=== PATIENT | male | born 1965 | race Caucasian/White ===

== ENCOUNTER 2017-08-22 05:33 | Outpatient (CLI) | payer BC ==
[~2017-08-22] VITALS: Ht 177.8 cm; Wt 131.5 kg
[~2017-08-22 05:33] MED LIST: ACHD5005 PO; CPR500T PO; CYCL10TA9 PO; HYDR1TAB8 OP; ONDAN4ODT PO; PRD50T PO; TMSL.4C PO
[2017-08-22] MEDS ORDERED: NALT1TAB PO (09:44)
== END 2017-08-22 09:49 ==
LOC: PREOP 05:33
PROVIDERS: ATTEND Surgery
DX: Z01.818 Encounter for other preprocedural examination (principal); Z12.11 Encounter for screening for malignant neoplasm of colon

== ENCOUNTER → 2017-08-29 | Day surgery (SDC) | payer BC, OTHER ==
[~2017-08-29] VITALS: Ht 177.8 cm; Wt 131.5 kg
[~2017-08-29] MED LIST changes: +LACTATED RINGERS 1,000 ML IV ONE; +LACTATED RINGERS 1,000 ML IV STA; +MIDAZOLAM 2 MG/2 ML (VERSED) VIAL ONE; +NALT1TAB PO; +PROPOFOL INJECTION 50 ML IV ONE; +proPOfol 200 MG/20 ML (DIPRIVAN) VIAL IV ONE
[2017-08-29 07:34] VITALS: BP 135/86
--- NOTE | 2017-08-29 08:04 | Progress Note-Pre Operative ---
Pre-Operative Progress Note H&P Reviewed The H&P was reviewed, patient examined and no changes noted. Date Seen by Provider: Aug 29, 2017 Time Seen by Provider: 08:04 Date H&P Reviewed: Aug 29, 2017 Time H&P Reviewed: 08:04 Pre-Operative Diagnosis: screening colonoscopy WINTER CHAVEZ DO Aug 29, 2017 08:04
--- NOTE | 2017-08-29 08:46 | Progress Note-Post Operative ---
Post-Operative Progess Note Surgeon (s)/Medical Management Specialist (s) Surgeon WINTER CHAVEZ DO Medical Management Specialist: na Pre-Operative Diagnosis screening colonoscopy Post-Operative Diagnosis cecal polyp, rectal polyp Procedure & Operative Findings Date of Procedure 08/29/17 Procedure Performed/Findings colonoscopy with hot bx polypectomy cecum, snare polypectomy and inking of rectal polyp Anesthesia Type per associate professor of violin Estimated Blood Loss Estimated blood loss (mL): na Specimens/Packing Specimens Removed cecal and rectal polyp WINTER CHAVEZ DO Aug 29, 2017 08:45
--- NOTE | 2017-08-29 08:48 | Discharge Inst-Simple/Standard ---
Discharge Inst-Standard Patient Instructions/Follow Up Plan of Care/Instructions/FU: 2 weeks Rj Activity as Tolerated: Yes Discharge Diet: Regular Diet WINTER CHAVEZ DO Aug 29, 2017 08:48
[2017-08-29 08:55] VITALS: BP 121/81
[2017-08-29 09:25] VITALS: BP 124/84
--- NOTE | 2017-08-29 09:27 | Anesthesia-General Post-Op ---
MAC Patient Condition Mental Status/LOC: Same as Preop Cardiovascular: Satisfactory Nausea/Vomiting: Absent Respiratory: Satisfactory Pain: Controlled Complications: Absent Post Op Complications Complications None Follow Up Care/Instructions Patient Instructions None needed. Anesthesiology Discharge Order Discharge Order Patient is doing well, no complaints, stable vital signs, no apparent adverse anesthesia problems. No complications reported per nursing. JESSICA CASE CRNA Aug 29, 2017 09:27
[2017-08-29 09:34] VITALS: BP 124/84
--- NOTE | 2017-08-29 09:49 | OPERATIVE REPORT ---
DATE OF SERVICE: 08/29/2017 PREOPERATIVE DIAGNOSIS: Screening colonoscopy. POSTOPERATIVE DIAGNOSES: Cecal and rectal polyp. PROCEDURE: Colonoscopy with hot biopsy polypectomy of cecal polyp, snare polypectomy and inking of rectal polyp. SURGEON: Winter De La Rosa DO ANESTHESIA: Per JOURNEYMAN LEVEL ACOUSTIC ANALYST. ESTIMATED BLOOD LOSS: None. COMPLICATIONS: None. INDICATIONS: The patient is a 52-year-old male due for a screening colonoscopy. He understands risks and benefits of procedure and wished to proceed with procedure. Consent was signed on chart. DESCRIPTION OF PROCEDURE: The patient was taken to the endoscopy suite, placed in left lateral recumbent position. Timeout was performed. Digital rectal exam was performed. There were no palpable polyps, mass or ulcerations. Scope was inserted into the rectum and advanced all the way to the cecum with minimal difficulty. Prep was adequate with little bit of irrigation and suction as well. Small polyp in the cecum, which hot biopsy polypectomy was performed. Scope was then slowly retracted back. There were no polyps, mass or ulcerations within the ascending, transverse and descending colon. There were no polyps, mass or ulceration of the sigmoid colon with normal mucosal appearance. Within the proximal rectum, a larger greater than 1 cm polyp was present. The polyp is inked just even with that and slightly distal with a total of 2 mL of Nellie ink. A snare polypectomy was then performed. Specimen was removed through the anus. The scope was reinserted. The area was inspected. Hemostasis was present and polyp was removed in its entirety. The scope was then slowly retracted back and retroflexed noting no other pathology. Scope was returned to its normal position, slowly until completely removed. RECOMMENDATIONS: The patient will follow up in 2 weeks to discuss pathology. We will recommend repeat colonoscopy in 3 to 6 months to reevaluate. Job ID: [id number] DocumentID: [id number] Dictated Date: 08/29/2017 08:52:18 Councilperson Date: 08/29/2017 09:48:22 Dictated By: WINTER DE LA ROSA DO
== END | disposition home or self-care (01) ==
LOC: ENDO 07:06
PROVIDERS: ATTEND Surgery
DX: Z12.11 Encounter for screening for malignant neoplasm of colon (principal); K63.5 Polyp of colon; D12.8 Benign neoplasm of rectum; F17.210 Nicotine dependence, cigarettes, uncomplicated; Z80.0 Family history of malignant neoplasm of digestive organs

== ENCOUNTER 2017-12-05 06:52 | Day surgery (SDC) | payer BC ==
[~2017-12-05] VITALS: Ht 177.8 cm; Wt 131.5 kg
[~2017-12-05 06:52] MED LIST changes: -LACTATED RINGERS 1,000 ML IV ONE; -LACTATED RINGERS 1,000 ML IV STA; -MIDAZOLAM 2 MG/2 ML (VERSED) VIAL ONE; -PROPOFOL INJECTION 50 ML IV ONE; -proPOfol 200 MG/20 ML (DIPRIVAN) VIAL IV ONE
[2017-12-05] MEDS ORDERED: LACTATED RINGERS 1,000 ML IV ONE (07:13)
[2017-12-05] MEDS ORDERED: LACTATED RINGERS 1,000 ML IV STA (07:32)
[2017-12-05] MEDS ORDERED: PROPOFOL INJECTION 50 ML IV ONE (07:42)
[2017-12-05 07:43] VITALS: BP 126/82
[2017-12-05] MEDS ORDERED: MIDAZOLAM 2 MG/2 ML (VERSED) VIAL ONE (07:43)
--- NOTE | 2017-12-05 08:19 | Progress Note-Pre Operative ---
Pre-Operative Progress Note H&P Reviewed The H&P was reviewed, patient examined and no changes noted. Date Seen by Provider: Dec 05, 2017 Time Seen by Provider: 08:10 Date H&P Reviewed: Dec 05, 2017 Time H&P Reviewed: 08:10 Pre-Operative Diagnosis: history of polyps WINTER CHAVEZ DO Dec 05, 2017 08:19
--- NOTE | 2017-12-05 09:04 | Progress Note-Post Operative ---
Post-Operative Progess Note Surgeon (s)/Senior Statistical Programmer (s) Surgeon WINTER CHAVEZ DO Senior Statistical Programmer: na Pre-Operative Diagnosis history of polyps Post-Operative Diagnosis colon polyps Procedure & Operative Findings Date of Procedure 12/05/17 Procedure Performed/Findings colonoscopy with hot bx polypectomy x 2 Anesthesia Type per lead carpenter Estimated Blood Loss Estimated blood loss (mL): none Specimens/Packing Specimens Removed ascending/descending colon polyp WINTER CHAVEZ DO Dec 05, 2017 09:04
--- NOTE | 2017-12-05 09:07 | Discharge Inst-Simple/Standard ---
Discharge Inst-Standard Patient Instructions/Follow Up Plan of Care/Instructions/FU: 2 weeks Rj Activity as Tolerated: Yes Discharge Diet: Regular Diet WINTER CHAVEZ DO Dec 05, 2017 09:07
[2017-12-05 09:10] VITALS: BP 131/65
[2017-12-05 09:30] VITALS: BP 133/76
[2017-12-05 11:29] VITALS: BP 133/76
--- NOTE | 2017-12-06 13:19 | OPERATIVE REPORT ---
DATE OF SERVICE: 12/05/2017 PREOPERATIVE DIAGNOSIS: History of polyps. POSTOPERATIVE DIAGNOSIS: Colon polyps. PROCEDURE: Colonoscopy with hot biopsy polypectomy x2. SURGEON: Winter De La Rosa DO ANESTHESIA: Per SUPERVISOR TUMBLERS. ESTIMATED BLOOD LOSS: None. COMPLICATIONS: None. INDICATIONS: The patient is a 52-year-old male with a history of a large polyp in the rectum. He understands risks and benefits of the procedure and wished to proceed with the procedure. Consent was signed on the chart. DESCRIPTION OF PROCEDURE: The patient was taken to the endoscopy suite, placed in left lateral recumbent position. Timeout was performed. Digital rectal exam was performed. There were no palpable polyps, masses, or ulcerations. The scope was inserted into the rectum and advanced all the way to the cecum with minimal difficulty. Prep was adequate. There were no polyps, mass or ulcerations within the cecum. Within the ascending colon, a very small polyp was present for which hot biopsy polypectomy was performed. Scope was continued to be slowly retracted back through the remainder of the descending and transverse colon. No other polyps, masses, or ulcerations were present. In the descending colon, another 2 mm polyp was present and hot biopsy polypectomy was performed. The scope was continuously retracted back. No polyps, mass or ulcerations within the sigmoid and rectum. Once in the rectum, the scope was also retroflexed noting no other pathology. The scope was returned to its normal position, slowly withdrawn until completely removed. The patient tolerated the procedure well without any complications. He was taken to the recovery room in stable condition. RECOMMENDATIONS: The patient will need repeat colonoscopy in 3 years. If he has any problems prior to that, he should be reevaluated at that time. Job ID: [id number] DocumentID: [id number] Dictated Date: 12/05/2017 09:09:25 Continuous Yarn Dyeing Machine Operator Date: 12/05/2017 14:05:38 Dictated By: WINTER DE LA ROSA DO
== END 2017-12-05 09:40 | disposition home or self-care (01) ==
LOC: ENDO 06:52
PROVIDERS: ATTEND Surgery
DX: Z09 Encounter for follow-up examination after completed treatment for conditions other than malignant neoplasm (principal); D12.2 Benign neoplasm of ascending colon; K63.5 Polyp of colon; F17.200 Nicotine dependence, unspecified, uncomplicated; E66.01 Morbid (severe) obesity due to excess calories; Z68.41 Body mass index [BMI] 40.0-44.9, adult; Z86.010 Personal history of colon polyps
CPT/HCPCS: 88305

== ENCOUNTER 2019-07-31 14:35 | Emergency (ER) | payer OTHER, BC ==
[~2019-07-31] VITALS: Ht 177.9 cm; Wt 145.0 kg
[2019-07-31] MEDS ORDERED: ORPHENADRINE 60 MG/2 ML (NORFLEX) AMP IM ONE (15:15)
[2019-07-31] MEDS ORDERED: KETOROLAC 60 MG/2 ML VIAL IM ONE (15:15)
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
[2019-07-31] MEDS ORDERED: ACHD5005 PO (16:39)
[2019-07-31] MEDS ORDERED: CYCL5TAB PO (16:39)
[2019-07-31] MEDS ORDERED: PRD50T PO (16:39)
[2019-07-31 16:50] VITALS: BP 131/88
== END 2019-07-31 16:50 | disposition home or self-care (01) ==
LOC: EDUNIT# 14:35 → ER 14:36
DX: S33.131A Dislocation of L3/L4 lumbar vertebra, initial encounter (principal); Z88.1 Allergy status to other antibiotic agents; Y93.89 Activity, other specified
CPT/HCPCS: 72131; 96372

== ENCOUNTER 2020-03-15 14:30 | Emergency (ER) | payer BC ==
[~2020-03-15] VITALS: Ht 177 cm; Wt 136.0 kg
[~2020-03-15 14:30] MED LIST changes: +CYCL5TAB PO
--- NOTE | 2020-03-15 14:57 | ED Back Pain ---
General Chief Complaint: Back Problems Stated Complaint: BACK PAIN Nursing Triage Note: PT TO ED W/ C/O BACK PAIN ONSET WHILE BENDING OVER ET LIFTING BOXES. DENIES INJURY. NO OTHER C/O VOICED. Nursing Sepsis Screen: No Definite Risk Source of Information: Patient Exam Limitations: No Limitations History of Present Illness Date Seen by Provider: Mar 15, 2020 Time Seen by Provider: 14:39 Initial Comments Patient presents ER by private conveyance from home with chief complaint that this morning around 8:30 he was bending over putting some parts into his trailer when he felt a spasming pain walking up in his low back. He does have a chronic history of low back pain. Pain does not radiate anywhere. He is not having any weakness numbness falls saddle anesthesia loss of control of bowel or bladder fever or chills or other trauma. He has had CTs in the past but no surgery. He says in the past he came to the ER and got some medications that seemed to help with the spasms. He follows with Dr. Mac. Allergies and Home Medications Allergies Coded Allergies: cefaclor (Verified Adverse Reaction, Intermediate, NAUSEA, 08/22/17) Home Medications Cyclobenzaprine HCl 5 Mg Tablet, 5 MG PO TID Prescribed by: PORFIRIO BOYER on 07/31/19 163 Hydrocodone Bit/Acetaminophen 1 Tab Tab, 1 EACH PO Q4-6HR PRN for PAIN-MODERATE Prescribed by: PORFIRIO BOYER on 07/31/19 163 Naltrexone HCl/Bupropion HCl 1 Each Tablet.er, 1 EACH PO DAILY, (Reported) Prednisone 50 Mg Tab, 50 MG PO DAILY Prescribed by: PORFIRIO BOYER on 07/31/19 1639 Patient Home Medication List Home Medication List Reviewed: Yes Review of Systems Constitutional: No chills, No diaphoresis EENTM: No ear discharge, No ear pain Respiratory: No cough, No short of breath Cardiovascular: No chest pain, No palpitations Gastrointestinal: No abdominal pain, No nausea, No vomiting Genitourinary: No discharge, No dysuria Musculoskeletal: back pain; No joint pain Skin: No pruritus, No rash Psychiatric/Neurological: Denies Headache, Denies Numbness All Other Systems Reviewed Negative Unless Noted: Yes Past Fkpaapv-Cxqkfh-Ddqfgw Hx Patient Social History Alcohol Use: Denies Use Recreational Drug Use: No Smoking Status: Never a Smoker 2nd Hand Smoke Exposure: No Recent Foreign Travel: No Contact w/Someone Who Travel: No Recent Infectious Disease Expo: No Recent Hopitalizations: No Physical Abuse: No Sexual Abuse: No Mistreated: No Fear: No Immunizations Up To Date Tetanus Booster (TDap): More than 5yrs Seasonal Allergies Seasonal Allergies: No Past Medical History Surgeries: Yes (KNEE SCOPE, SHOULDER, L CTR) Orthopedic Respiratory: No Cardiac: No Neurological: No Reproductive Disorders: No Sexually Transmitted Disease: No HIV/AIDS: No Kidney Stones Gastrointestinal: No Musculoskeletal: No Endocrine: No Loss of Vision: Bilateral Hearing Impairment: Denies Cancer: No Psychosocial: No Integumentary: No Blood Disorders: No Adverse Reaction/Blood Tranf: No (N/A) Family Medical History No Pertinent Family Hx Physical Exam Vital Signs Vital Signs - First Documented 03/15/20 14:34 Temp 36.2 Pulse 66 Resp 20 B/P (MAP) 131/79 (96) Pulse Ox 96 Capillary Refill : Less Than 3 Seconds Height, Weight, BMI Height: 5'10.00" Weight: 290lbs. 0.0oz. [id number]; 43.00 BMI Method:Stated General Appearance: Mild Distress, Obese HEENT: PERRL/EOMI, Pharynx Normal, Moist Mucous Membranes Neck: Normal Inspection, Non Tender Cardiovascular: Regular Rate, Rhythm, Normal Peripheral Pulses Respiratory: No Accessory Muscle Use, No Respiratory Distress Peripheral Pulses: 2+ Radial Pulses (R), 2+ Radial Pulses (L) Back: Normal Inspection, Muscle Spasm (bilateral lumbar spine); No Vertebral Tenderness Extremity: Normal Capillary Refill, Normal Inspection Neurologic/Psychiatric: Alert, Oriented x3, No Motor/Sensory Deficits Skin: Normal Color, Warm/Dry Progress/Results/Core Measures Results/Orders My Orders Orders - ANGELICA EDMOND Orphenadrine Inj (Ed Only) (Norflex Inje (03/15/20 15:00) Ketorolac Injection (Toradol Injection) (03/15/20 15:00) Vital Signs/I&O 03/15/20 14:34 Temp 36.2 Pulse 66 Resp 20 B/P (MAP) 131/79 (96) Pulse Ox 96 Blood Pressure Mean: 96 Progress Progress Note : Time: 14:56 Progress Note Review of his CT from July 2019, 8 months ago demonstrated some 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 He is not having any red flag signs today so we'll start with NSAIDs, muscle relaxants and encourage him to follow with Dr. Mac if this is not showing some improvement this week and he could consider going to physical therapy as well as steroids. Return precautions were given. Departure Impression Primary Impression: Lumbago without sciatica Qualified Codes: M54.5 - Low back pain Disposition: 01 HOME, SELF-CARE Condition: Stable Departure-Patient Inst. Decision time for Depature: 14:50 Referrals: KHOA MAC MD (PCP/Family) Primary Care Physician Patient Instructions: Low Back Pain (DC), Back Stretches on Floor Add. Discharge Instructions: Topical creams, icy hot, Biofreeze etc. Start an NSAID daily such as naproxen 2 tablets twice a day or ibuprofen 4 tablets 3 times a day for the next 2 weeks. Tylenol 1000 mg every 8 hours as necessary for pain. Heating pads can be helpful for your pain. Follow-up with physical therapy or your primary care doctor next week if you're not seeing some improvement. Cyclobenzaprine/Flexeril one tablet every 8 hours as necessary for muscle spasms. Will cause drowsiness. Return to the ER if you have inability to control your urine or bowels, falls due to weakness, numbness. All discharge instructions reviewed with patient and/or family. Voiced understanding. Scripts Cyclobenzaprine HCl (Cyclobenzaprine HCl) 10 Mg Tablet 10 MG PO Q8H PRN for SPASMS, #20 TAB 0 Refills Prov: ANGELICA EDMOND 03/15/20 ANGELICA EDMOND Mar 15, 2020 14:57
[2020-03-15] MEDS ORDERED: KETOROLAC 60 MG/2 ML VIAL IM ONE (15:00)
[2020-03-15] MEDS ORDERED: ORPHENADRINE 60 MG/2 ML (NORFLEX) AMP (ED ONLY) IM ONE (15:00)
[2020-03-15] MEDS ORDERED: CYCL10TA9 PO (15:01)
[2020-03-15 15:30] VITALS: BP 0/0
--- NOTE | 2020-03-15 15:30 | NUR ---
PT DISCHARGED TO HOME W/ INSTR. PT TO TAKE MEDS INSTR, F/U W/ PCP ET RETURN IF SYMPTOMS CHANGE OR GET WORSE. PT VOICED UNDERSTANDING, NO QUESTIONS.
== END 2020-03-15 15:30 ==
LOC: EDUNIT# 14:30 → ER 14:31
DX: M54.5 Low back pain (principal); E66.9 Obesity, unspecified; Z68.41 Body mass index [BMI] 40.0-44.9, adult; Z88.8 Allergy status to other drugs, medicaments and biological substances; Z79.52 Long term (current) use of systemic steroids
CPT/HCPCS: 99284

== ENCOUNTER 2020-11-24 05:42 | Outpatient (CLI) | payer BC, OTHER ==
[~2020-11-24] VITALS: Ht 177.8 cm; Wt 153.4 kg
== END 2020-11-25 09:46 | disposition home or self-care (01) ==
LOC: PREOP 05:42
PROVIDERS: ATTEND Surgery
DX: Z01.818 Encounter for other preprocedural examination (principal)

== ENCOUNTER 2020-12-07 16:05 | Emergency (ER) | payer OTHER ==
[~2020-12-07] VITALS: Ht 177.8 cm; Wt 145.0 kg
--- NOTE | 2020-12-07 16:57 | ED Abdominal Pain ---
General Chief Complaint: Abdominal/GI Problems Stated Complaint: ABD PAIN / FEVER Source of Information: Patient Exam Limitations: No Limitations (DEE MAYA APRN) History of Present Illness Date Seen by Provider: Dec 07, 2020 Time Seen by Provider: 16:57 (DEE MAYA APRN) Initial Comments This 55-year-old gentleman presents to the emergency room with complaints of abdominal pain, diarrhea, and a dry cough for the past several days. He is also febrile. He has had no known Covid exposures at work. He has not been vaccinated for COVID-19. He appears to have peritoneal signs on exam with tenderness to percussion throughout the abdomen. He denies any known health problems. (YISSEL VALE MD) Allergies and Home Medications Allergies Coded Allergies: cefaclor (Verified Adverse Reaction, Intermediate, NAUSEA, 08/22/17) Home Medications Azithromycin 250 Mg Tablet, 250 MG PO DAILY Prescribed by: YISSEL SEGAL on 12/07/202004 Dexamethasone 6 Mg Tablet, 6 MG PO DAILY Prescribed by: YISSEL SEGAL on 12/07/202004 Patient Home Medication List Home Medication List Reviewed: Yes (YISSEL VALE MD) Review of Systems Review of Systems Constitutional: no symptoms reported EENTM: No Symptoms Reported Respiratory: See HPI Cardiovascular: No Symptoms Reported Gastrointestinal: See HPI Genitourinary: No Symptoms Reported Musculoskeletal: muscle pain Skin: no symptoms reported Psychiatric/Neurological: No Symptoms Reported Endocrine: No Symptoms Reported Hematologic/Lymphatic: No Symptoms Reported (YISSEL VALE MD) Past Pexvvug-Eorgpq-Hidfam Hx Patient Social History Tobacco Use?: No Substance use?: No Alcohol Use?: Yes Alcohol Frequency: Once in a while Pt feels they are or have been: No (DEE MAYA APRN) Tobacco Use?: No (YISSEL VALE MD) Immunizations Up To Date Tetanus Booster (TDap): More than 5yrs (DEE MAYA APRN) Seasonal Allergies Seasonal Allergies: No (DEE MAYA APRN) Seasonal Allergies: No (YISSEL VALE MD) Past Medical History Surgeries: Yes (KNEE SCOPE, SHOULDER, L CTR) Orthopedic Respiratory: No Cardiac: No Neurological: No Reproductive Disorders: No Sexually Transmitted Disease: No HIV/AIDS: No Kidney Stones Gastrointestinal: No Musculoskeletal: No Endocrine: No Loss of Vision: Bilateral Hearing Impairment: Denies Cancer: No Psychosocial: No Integumentary: No Blood Disorders: No Adverse Reaction/Blood Tranf: No (N/A) (DEE MAYA APRN) Surgeries: No Respiratory: No Cardiac: No Neurological: No Reproductive Disorders: No Genitourinary: No Gastrointestinal: No Musculoskeletal: No Endocrine: No HEENT: No Cancer: No Psychosocial: No Integumentary: No (YISSEL VALE MD) Family Medical History No Pertinent Family Hx (DEE MAYA APRN) Physical Exam Vital Signs Vital Signs - First Documented 12/07/20 16:25 Temp 38.1 Pulse 74 Resp 20 B/P (MAP) 118/80 (93) Pulse Ox 92 O2 Delivery Room Air (YISSEL VALE MD) Vital Signs Capillary Refill : (DEE MAYA APRN) Height/Weight/BMI Height: 5'10.00" Weight: 290lbs. 0.0oz. [id number]; 48.52 BMI Method:Stated (DEE MAYA APRN) General Appearance: WD/WN, mild distress, obese HEENT: normal ENT inspection Neck: normal inspection Respiratory: lungs clear, no respiratory distress, decreased breath sounds Cardiovascular: regular rate, rhythm, no edema, no murmur Gastrointestinal: normal bowel sounds, soft, tenderness (Generalized tenderness throughout to percussion) Extremities: non-tender, normal inspection, no pedal edema Neurologic/Psychiatric: log loader II-XII nml as tested, no motor/sensory deficits, alert, normal mood/affect, oriented x 3 Skin: normal color, warm/dry (YISSEL VALE MD) Progress/Results/Core Measures Results/Orders Lab Results Laboratory Tests Test 12/07/20 16:55 Range/Units White Blood Count 3.4 L 4.3-11.0 10^3/uL Red Blood Count 5.69 H 4.30-5.52 10^6/uL Hemoglobin 17.0 13.3-17.7 g/dL Hematocrit 50 40-54 % Mean Corpuscular Volume 88 80-99 fL Mean Corpuscular Hemoglobin 30 25-34 pg Mean Corpuscular Hemoglobin Concent 34 32-36 g/dL Red Cell Distribution Width 12.6 10.0-14.5 % Platelet Count 116 L 130-400 10^3/uL Mean Platelet Volume 12.0 9.0-12.2 fL Immature Granulocyte % (Auto) 0 % Neutrophils (%) (Auto) 77 H 42-75 % Lymphocytes (%) (Auto) 15 12-44 % Monocytes (%) (Auto) 9 0-12 % Eosinophils (%) (Auto) 0 0-10 % Basophils (%) (Auto) 0 0-10 % Neutrophils # (Auto) 2.6 1.8-7.8 10^3/uL Lymphocytes # (Auto) 0.5 L 1.0-4.0 10^3/uL Monocytes # (Auto) 0.3 0.0-1.0 10^3/uL Eosinophils # (Auto) 0.0 0.0-0.3 10^3/uL Basophils # (Auto) 0.0 0.0-0.1 10^3/uL Immature Granulocyte # (Auto) 0.0 0.0-0.1 10^3/uL Percent Immature Platelet Fraction 7.6 0.0-7.6 % Sodium Level 137 135-145 MMOL/L Potassium Level 3.9 3.6-5.0 MMOL/L Chloride Level 100 98-107 MMOL/L Carbon Dioxide Level 27 21-32 MMOL/L Anion Gap 10 5-14 MMOL/L Blood Urea Nitrogen 15 7-18 MG/DL Creatinine 1.15 0.60-1.30 MG/DL Estimat Glomerular Filtration Rate > 60 BUN/Creatinine Ratio 13 Glucose Level 111 H 70-105 MG/DL Calcium Level 8.8 8.5-10.1 MG/DL Corrected Calcium 8.7 8.5-10.1 MG/DL Total Bilirubin 1.0 0.1-1.0 MG/DL Aspartate Amino Transf (AST/SGOT) 47 H 5-34 U/L Alanine Aminotransferase (ALT/SGPT) 50 0-55 U/L Alkaline Phosphatase 56 40-136 U/L C-Reactive Protein High Sensitivity 5.94 H 0.00-0.50 MG/DL B-Type Natriuretic Peptide 19.1 <100.0 PG/ML Total Protein 7.2 6.4-8.2 GM/DL Albumin 4.1 3.2-4.5 GM/DL Lipase 12 8-78 U/L Procalcitonin 0.08 <0.10 NG/ML Influenza Type A (RT-PCR) Not Detected Not Detecte Influenza Type B (RT-PCR) Not Detected Not Detecte SARS-CoV-2 RNA (RT-PCR) Detected H Not Detecte (YISSEL VALE MD) My Orders Orders - YISSEL VALE MD Lipase (12/07/20 17:19) Ct Abdomen/Pelvis W (12/07/20 18:11) Ua Culture If Indicated (12/07/20 18:13) Albuterol Inhaler (Ventolin Hfa) (12/07/20 18:17) Iohexol Injection (Omnipaque 350 Mg/Ml 1 (12/07/20 18:30) Received Contrast (Hold Metformin- Contr (12/07/20 18:30) Sodium Chloride Flush (Catheter Flush Sy (12/07/20 18:30) Ns (Ivpb) (Sodium Chloride 0.9% Ivpb Bag (12/07/20 18:30) BNP (12/07/20 19:16) Procalcitonin (Pct) (12/07/20 19:16) Azithromycin Tablet (Zithromax Tablet) (12/07/20 19:45) Dexamethasone Injection (Decadron Inje (12/07/20 19:45) (YISSEL VALE MD) Medications Given in ED Current Medications Medications Dose Ordered Sig/Gilberto Route Start Time Stop Time Status Last Admin Dose Admin Acetaminophen 1,000 mg ONCE ONCE PO 12/07/20 17:15 12/07/20 20:40 DC 12/07/20 17:15 1,000 MG Azithromycin 500 mg ONCE ONCE PO 12/07/20 19:45 12/07/20 19:46 DC 12/07/20 20:22 500 MG Dexamethasone Sodium Phosphate 6 mg ONCE ONCE IV 12/07/20 19:45 12/07/20 19:46 DC 12/07/20 20:22 6 MG Iohexol 100 ml ONCE ONCE IV 12/07/20 18:30 12/07/20 18:31 DC 12/07/20 18:40 100 ML Sodium Chloride 10 ml NEEDED PRN IV 12/07/20 18:30 12/07/20 20:40 DC 12/07/20 18:40 10 ML Sodium Chloride 100 ml ONCE ONCE IV 12/07/20 18:30 12/07/20 18:31 DC 12/07/20 18:40 80 ML (YISSEL VALE MD) Vital Signs/I&O 12/07/20 12/07/20 12/07/20 12/07/20 16:25 17:13 17:15 20:30 Temp 38.1 38.1 38.1 36.9 Pulse 74 77 Resp 20 19 B/P (MAP) 118/80 (93) 111/77 (93) Pulse Ox 92 94 O2 Delivery Room Air Room Air (YISSEL VALE MD) Progress Progress Note : Progress Note COVID-19 swab was positive. Patient was maintaining oxygen saturations of 91 to 93% when lying down. Oxygen saturation improved to 93 to 97% when sitting up or active. His chest seem fairly tight on auscultation. Albuterol inhaler was gi greg which did improve his shortness of breath some. I discussed the situation with Dr. Mac. His status is borderline for admission versus discharge home. He would like to try being discharged home and monitor his oxygen saturations closely. Since his oxygen saturations are borderline, he is being started on dexamethasone and azithromycin. An order for monoclonal antibodies was submitted to the pharmacy. Patient also had significant abdominal tenderness, even to percussion. For this reason CT of the abdomen and pelvis was obtained. It showed some thickening of the viscera suggestive of gastroenteritis. (YISSEL VALE MD) Diagnostic Imaging Diagonstic Imaging: Xray Plain Films/CT/US/NM/MRI: chest Comments Chest x-ray viewed by me and report reviewed. See report below. NAME: CRISTIAN RODGERS MED REC#: [id number] PT STATUS: REG ER : 1965 PHYSICIAN: DEE MAYA APRN ADMIT DATE: 12/07/20/ER Signed Date of Exam:12/07/20 CHEST 1 VIEW, AP/PA ONLY EXAMINATION: Chest 1 view HISTORY: Cough. COMPARISON: 03/01/2016. FINDINGS: Lung volumes are low. Patchy opacities are seen throughout the lungs. No large pleural effusion or pneumothorax. The cardiac silhouette is unremarkable. No acute osseous abnormalities. IMPRESSION: 1. Low lung volumes and patchy opacities throughout the lungs. Findings may represent multifocal pneumonia versus edema. A component of atelectasis may also be present. Dictated by: Dictated on workstation # [id number] Dict: 12/07/208 Trans: 12/07/201810 [facility] [id number] Interpreted by: MERLYN ALAS DO Electronically signed by: MERLYN ALAS DO 12/07/201810 Diagonstic Imaging: CT Plain Films/CT/US/NM/MRI: abdomen, pelvis Comments CT abdomen pelvis viewed by me and report reviewed. See report below: NAME: CRISTIAN RODGERS [facility] REC#: [id number] PT STATUS: REG ER : 1965 PHYSICIAN: YISSEL VALE MD ADMIT DATE: 12/07/20/ER Draft Date of Exam:12/07/20 CT ABDOMEN/PELVIS W PROCEDURE: CT abdomen and pelvis with contrast, 12/07/2020. TECHNIQUE: Multiple contiguous axial images were obtained through the abdomen and pelvis after administration of intravenous contrast. Auto Exposure Controls were utilized during the CT exam to meet ALARA standards for radiation dose reduction. All CT scans use one or more of the following dose optimizing techniques: automated exposure control, MA and/or KvP adjustment based on patient size and exam type or iterative reconstruction. INDICATION: Positive for Covid. Abdominal pain. Peritoneal signs. FINDINGS: There are multiple patchy airspace opacities diffusely throughout both lungs consistent with the known history of Covid. Within the abdomen and pelvis there are multiple cystic lesions, some of which are too small for characterization. Others consistent with cysts. The spleen, pancreas and adrenal glands unremarkable. The gallbladder unremarkable. Kidneys within normal limits. There is a small left pleural effusion. There is wall thickening throughout the stomach which could be due to under distention versus gastritis. Minimal wall thickening throughout several small bowel loops also noted, possibly due to incomplete distention with enteritis not excluded. There is no ascites or free air. The appendix is normal. Old transverse process fractures through the lumbar spine noted. No acute osseous abnormality appreciated. IMPRESSION: 1. Wall thickening throughout the stomach and small bowel could be due to under distention versus gastritis and enteritis, correlate with symptoms. 2. Patchy peripheral airspace opacities throughout the visualized lungs consistent with history of Covid with a small left pleural effusion. 3. Cystic changes throughout the liver, fairly simple in appearance with hepatic steatosis also noted. 4. Other incidental findings, as discussed above. Dictated on workstation # [id number] Dict: 12/07/20 1853 Trans: 12/07/20 1924 [facility] [id number] Interpreted by: ELDON CARTER MD (YISSEL VALE MD) Departure Impression Primary Impression: Pneumonia due to COVID-19 virus Additional Impression: Abdominal pain Qualified Codes: R10.84 - Generalized abdominal pain Disposition: HOME, SELF-CARE Condition: Improved Departure-Patient Inst. Decision time for Depature: 20:02 (YISSEL VALE MD) Referrals: KHOA MAC MD (PCP/Family) Primary Care Physician Patient Instructions: COVID-19 ED Add. Discharge Instructions: Stay well-hydrated by drinking plenty of clear liquids. For pain and fever you may take ibuprofen up to 600 mg every 6 hours and/or Tylenol (acetaminophen) up to 1000 mg every 6 hours as needed. Complete your antibiotics and steroids as prescribed. The pharmacy should be calling you sometime tomorrow to schedule an appointment for monoclonal antibody infusion. Obtain a pulse oximeter and check your oxygen saturations frequently. If you have oxygen saturations persistently under 92%, return to the emergency room. Change positions often and exercise deep breathing. Some research suggests that supplements such as a multivitamin, vitamin D, zinc, and elderberry can help support your immune system during COVID-19. Use your inhaler 2 puffs every 4 hours as needed for wheezing or chest tightness. Return to care if you have other concerning worsening symptoms. Call with questions or concerns. All discharge instructions reviewed with patient and/or family. Voiced understanding. Scripts Dexamethasone (Dexamethasone) 6 Mg Tablet 6 MG PO DAILY, #9 TAB Prov: YISSEL VALE MD 12/07/20 Azithromycin (Azithromycin) 250 Mg Tablet 250 MG PO DAILY, #4 TAB Prov: YISSEL VALE MD 12/07/20 Copy Copies To 1: KHOA MAC MD, PETER J APRN Dec 07, 2020 16:57 YISSEL VALE MD Dec 07, 2020 18:25
[2020-12-07] MEDS ORDERED: ACETAMINOPHEN 325 MG TABLET PO ONE (17:15)
[2020-12-07] MEDS ORDERED: ACETAMINOPHEN 500 MG TAB (TYLENOL) PO ONE (17:15)
[2020-12-07 17:42] LABS: ALBUMIN 4.1 GM/DL (3.2-4.5); CHLORIDE 100 MMOL/L (98-107); POTASSIUM 3.9 MMOL/L (3.6-5.0); SODIUM 137 MMOL/L (135-145)
[2020-12-07 17:44] LABS: CALCIUM 8.8 MG/DL (8.5-10.1)
[2020-12-07 17:45] LABS: GLUCOSE 111 MG/DL (70-105); TOTAL PROTEIN 7.2 GM/DL (6.4-8.2)
[2020-12-07 17:46] LABS: CARBON DIOXIDE 27 MMOL/L (21-32)
[2020-12-07 17:47] LABS: BASOPHILS % (AUTO) 0 % (0-10); EOSINOPHILS % (AUTO) 0 % (0-10); LYMPHOCYTES % (AUTO) 15 % (12-44)
[2020-12-07 17:48] LABS: ALKALINE PHOSPHATASE 56 U/L (40-136); CREATININE SERUM 1.15 MG/DL (0.60-1.30); GFR ESTIMATED > 60
[2020-12-07 17:49] LABS: HEMATOCRIT 50 % (40-54); LYMPHOCYTES # (AUTO) 0.5 10^3/uL (1.0-4.0); MEAN CORPUSCULAR HEMOGLOBIN 30 pg (25-34); MEAN CORPUSCULAR HGB CONC 34 g/dL (32-36); MEAN CORPUSCULAR VOLUME 88 fL (80-99); MONOCYTES # (AUTO) 0.3 10^3/uL (0.0-1.0); MONOCYTES % (AUTO) 9 % (0-12); NEUTROPHILS # (AUTO) 2.6 10^3/uL (1.8-7.8); NEUTROPHILS % (AUTO) 77 % (42-75); PLATELET COUNT 116 10^3/uL (130-400); WHITE BLOOD COUNT 3.4 10^3/uL (4.3-11.0)
[2020-12-07 17:50] LABS: BUN/CREATININE RATIO 13
[2020-12-07 17:51] LABS: ALANINE AMINOTRANSFERASE 50 U/L (0-55)
[2020-12-07 17:52] LABS: LIPASE 12 U/L (8-78)
--- NOTE | 2020-12-07 18:11 | Diagnostic Imaging Report ---
EXAMINATION: Chest 1 view HISTORY: Cough. COMPARISON: 03/01/2016. FINDINGS: Lung volumes are low. Patchy opacities are seen throughout the lungs. No large pleural effusion or pneumothorax. The cardiac silhouette is unremarkable. No acute osseous abnormalities. IMPRESSION: 1. Low lung volumes and patchy opacities throughout the lungs. Findings may represent multifocal pneumonia versus edema. A component of atelectasis may also be present. Dictated by: Dictated on workstation # [id number]
[2020-12-07] MEDS ORDERED: RT-ALBUTEROL INHALER HFA (VENTOLIN HFA) 18 GM IH STA (18:17)
[2020-12-07] MEDS ORDERED: HOLD METFORMIN - RECEIVED CONTRAST 20 ML VIAL IV SCH (18:30)
[2020-12-07] MEDS ORDERED: CATHETER FLUSH 10 ML SYR IV PRN (18:30)
[2020-12-07] MEDS ORDERED: IOHEXOL 350 MG/ML 100 ML (OMNIPAQUE 350) VIAL IV ONE (18:30)
[2020-12-07] MEDS ORDERED: NS 100 ML (IVPB) BAG IV ONE (18:30)
--- NOTE | 2020-12-07 19:25 | Diagnostic Imaging Report ---
PROCEDURE: CT abdomen and pelvis with contrast, 12/07/2020. TECHNIQUE: Multiple contiguous axial images were obtained through the abdomen and pelvis after administration of intravenous contrast. Auto Exposure Controls were utilized during the CT exam to meet ALARA standards for radiation dose reduction. All CT scans use one or more of the following dose optimizing techniques: automated exposure control, MA and/or KvP adjustment based on patient size and exam type or iterative reconstruction. INDICATION: Positive for Covid. Abdominal pain. Peritoneal signs. FINDINGS: There are multiple patchy airspace opacities diffusely throughout both lungs consistent with the known history of Covid. Within the abdomen and pelvis there are multiple cystic lesions, some of which are too small for characterization. Others consistent with cysts. The spleen, pancreas and adrenal glands unremarkable. The gallbladder unremarkable. Kidneys within normal limits. There is a small left pleural effusion. There is wall thickening throughout the stomach which could be due to under distention versus gastritis. Minimal wall thickening throughout several small bowel loops also noted, possibly due to incomplete distention with enteritis not excluded. There is no ascites or free air. The appendix is normal. Old transverse process fractures through the lumbar spine noted. No acute osseous abnormality appreciated. IMPRESSION: 1. Wall thickening throughout the stomach and small bowel could be due to under distention versus gastritis and enteritis, correlate with symptoms. 2. Patchy peripheral airspace opacities throughout the visualized lungs consistent with history of Covid with a small left pleural effusion. 3. Cystic changes throughout the liver, fairly simple in appearance with hepatic steatosis also noted. 4. Other incidental findings, as discussed above. Dictated by: Dictated on workstation # [id number]
[2020-12-07] MEDS ORDERED: AZITHROMYCIN 250 MG TAB (ZITHROMAX) PO ONE (19:45)
[2020-12-07] MEDS ORDERED: AZIT250T12 PO (20:05)
[2020-12-07] MEDS ORDERED: DEXA6TAB PO (20:05)
[2020-12-07 20:30] VITALS: BP 111/77
== END 2020-12-07 20:30 | disposition home or self-care (01) ==
LOC: EDUNIT# 16:05 → ER 16:06
DX: U07.1 COVID-19 (principal); J12.82 Pneumonia due to coronavirus disease 2019; R10.84 Generalized abdominal pain; E66.9 Obesity, unspecified; Z68.42 Body mass index [BMI] 45.0-49.9, adult
CPT/HCPCS: 36415; 71045; 74177; 80053; 83690; 83880; 84145; 85025; 86141; 87636

== ENCOUNTER 2020-12-08 11:27 | Emergency (ER) | payer OTHER ==
[2020-12-07 20:30] VITALS: BP 111/77
[~2020-12-08 11:27] MED LIST changes: -CASIRIVIMAB/IMDEVIMAB 1,200 MG in NS (IVPB) 250 ML IV ONE; -EPINEPHrine INJECTION 1 MG/ML AMP IM PRN; -diphenhydrAMINE 50 MG/ML INJ (BENADRYL) IV PRN
== END 2020-12-08 11:50 | disposition still patient (30) ==
LOC: EDUNIT# 11:27 → ER 11:28
DX: U07.1 COVID-19 (principal)
CPT/HCPCS: 99281

== ENCOUNTER → 2020-12-08 | Outpatient (CLI) | payer OTHER ==
[~2020-12-08] MED LIST changes: +AZIT250T12 PO; +CASIRIVIMAB/IMDEVIMAB 1,200 MG in NS (IVPB) 250 ML IV ONE; +DEXA6TAB PO; +EPINEPHrine INJECTION 1 MG/ML AMP IM PRN; +diphenhydrAMINE 50 MG/ML INJ (BENADRYL) IV PRN
[2020-12-08 11:58] VITALS: BP 121/80
[2020-12-08 13:03] VITALS: BP 107/75
[2020-12-08 14:03] VITALS: BP 116/77
== END ==
LOC: INFUSION 12:03
PROVIDERS: ATTEND Family Medicine
DX: Z23 Encounter for immunization (principal); U07.1 COVID-19

== ENCOUNTER 2021-01-05 07:29 | Day surgery (SDC) | payer BC, OTHER ==
[~2021-01-05] VITALS: Ht 177.8 cm; Wt 136.4 kg
[2021-01-05] VITALS (7 sets, daily range): BP systolic 109–127; BP diastolic 7–81
[2021-01-05] MEDS ORDERED: LACTATED RINGERS 1,000 ML IV STA (07:36)
[2021-01-05] MEDS ORDERED: LACTATED RINGERS 1,000 ML IV ONE (07:53)
[2021-01-05] MEDS ORDERED: PROPOFOL INJECTION 50 ML IV ONE (08:13)
[2021-01-05] MEDS ORDERED: MIDAZOLAM 2 MG/2 ML (VERSED) VIAL ONE (08:13)
--- NOTE | 2021-01-05 08:47 | Discharge Inst-Simple/Standard ---
Discharge Inst-Standard Patient Instructions/Follow Up Plan of Care/Instructions/FU: 2 weeks Rj Activity as Tolerated: Yes Discharge Diet: Regular Diet WINTER CHAVEZ DO Jan 05, 2021 08:47
--- NOTE | 2021-01-05 08:47 | Progress Note-Post Operative ---
Post-Operative Progess Note Surgeon (s)/Order Fulfillment Specialist (s) Surgeon WINTER CHAVEZ DO Order Fulfillment Specialist: na Pre-Operative Diagnosis history of polyps Post-Operative Diagnosis colon polyps x 3 Procedure & Operative Findings Date of Procedure 01/05/21 Procedure Performed/Findings colonoscopy c cold bx polypectomy x 1 hot bx polypectomy x 2 Anesthesia Type per supervisor [employer] Estimated Blood Loss Estimated blood loss (mL): none Specimens/Packing Specimens Removed colon polyps WINTER CHAVEZ DO Jan 05, 2021 08:47
--- NOTE | 2021-01-05 11:41 | Anesthesia-General Post-Op ---
MAC Patient Condition Mental Status/LOC: Same as Preop Cardiovascular: Satisfactory Nausea/Vomiting: Absent Respiratory: Satisfactory Pain: Controlled Complications: Absent Post Op Complications Complications None Follow Up Care/Instructions Patient Instructions None needed. Anesthesiology Discharge Order Discharge Order Patient is doing well, no complaints, stable vital signs, no apparent adverse anesthesia problems. No complications reported per nursing. JESSICA CASE CRNA Jan 05, 2021 11:41
--- NOTE | 2021-01-05 15:36 | OPERATIVE REPORT ---
DATE OF SERVICE: 01/05/2021 PREOPERATIVE DIAGNOSIS: History of polyps. POSTOPERATIVE DIAGNOSIS: Colon polyps x3. PROCEDURE: Colonoscopy with cold biopsy polypectomy x1. Hot biopsy polypectomy x2. SURGEON: Winter De La Rosa DO ANESTHESIA: Per WAX BLENDER. ESTIMATED BLOOD LOSS: None. COMPLICATIONS: None. INDICATIONS: The patient is a 55-year-old male needing screening colonoscopy for history of polyps. He understands risks and benefits of procedure and wished to proceed with procedure. Consent was signed in the chart. DESCRIPTION OF PROCEDURE: The patient was taken to the endoscopy suite, placed in left lateral recumbent position. Timeout was performed. Digital rectal exam was performed. No palpable polyps, masses or ulcerations. Scope was inserted in the rectum and advanced all the way to cecum with minimal difficulty. Prep was adequate. Scope was slowly retracted back. No polyps, masses or ulcerations within the cecum. In the ascending colon, a very small polyp, which cold biopsy polypectomy was performed. Scope was then continuously retracted back in the hepatic flexure, a little larger polyp was present, which hot biopsy polypectomy was performed. Scope was then continuously retracted back. No polyps, masses or ulcerations within the transverse, descending colon. In the sigmoid colon, another small polyp was present, which hot biopsy polypectomy was performed. Scope was then continuously retracted back into the rectum where it was also retroflexed noting no other pathology. Scope was returned to its normal position, slowly withdrawn until completely removed. The patient tolerated procedure well without any complications, taken to recovery room in stable condition. RECOMMENDATIONS: The patient will follow up in the office in 2 weeks to discuss pathology results. The patient will need repeat colonoscopy in 5 years. Any issues before that be seen at that time. Job ID: [id number] DocumentID: [id number] Dictated Date: 01/05/2021 08:50:42 Ice Skating Coach Date: 01/05/2021 15:35:11 Dictated By: WINTER DE LA ROSA DO
== END 2021-01-05 09:30 | disposition home or self-care (01) ==
LOC: ENDO 07:29
PROVIDERS: ATTEND Surgery
DX: Z12.11 Encounter for screening for malignant neoplasm of colon (principal); E66.01 Morbid (severe) obesity due to excess calories; Z68.41 Body mass index [BMI] 40.0-44.9, adult; Z79.899 Other long term (current) drug therapy